=== PATIENT | male | born 1950 | race Caucasian/White ===

== ENCOUNTER → 2017-05-03 | Outpatient (CLI) | payer MEDICARE ==
[~2017-05-03] MED LIST: CATHETER FLUSH 10 ML SYR IV PRN; IOHEXOL 350 MG/ML 100 ML (OMNIPAQUE 350) VIAL IV ONE; NS 100 ML (IVPB) BAG IV ONE
[2017-05-03 10:47] LABS: BLOOD UREA NITROGEN 15 MG/DL (7-18); BUN/CREATININE RATIO 17; CREATININE SERUM 0.89 MG/DL (0.60-1.30); GFR ESTIMATED > 60
--- NOTE | 2017-05-03 13:36 | Diagnostic Imaging Report ---
TECHNIQUE: The IAC and head CT scan were performed with and without intravenous contrast. INDICATION: Conductive hearing loss. CONTRAST: 80 mL of Omnipaque 350 was administered intravenously. FINDINGS: There is no intracranial hemorrhage, edema, or mass effect. The parenchymal phase imaging demonstrates no enhancing mass. The left sigmoid sinus demonstrates poor enhancement and abnormalities in the left mastoid air cells are seen better on the dedicated thin section IAC images which demonstrate bony erosions in the septa and at the margins of the mastoid air cells which include the margins at the interface with the soft tissues in the upper left neck and subtle erosions along the sigmoid plate. There is no obvious intracranial or epidural abscess. However, there is poor enhancement in the left sigmoid sinus. There is suggestion of a pre-existing congenital relatively small sigmoid sinus; however, the lack of enhancement is suggestive of superimposed thrombosis or thrombophlebitis. The opacification in the mastoid air cells extends also anteriorly and around the middle ear cavity which is largely opacified and surrounding the ossicles. There are no significant erosions, however, demonstrated in the ossicles or in the scutum. The post contrast images demonstrate no definitive enhancement in the mastoid air cells. The inner ear structures including the internal auditory canals, cochlea, vestibule, and the semicircular canals appear to be intact. No obvious erosions along the roof of the temporal bone at the floor of the middle cranial fossa. The right mastoid air cells, middle ear cavity, and inner ear structures appear unremarkable. IMPRESSION: 1. Significant osseous erosions associated with opacification of the mastoid air cells and middle ear cavity on the left side are suggestive of coalescent otomastoiditis. The osseous erosions include a subtle erosion along the medial wall posteriorly along the sigmoid plate. 2. There is also poor enhancement in the left sigmoid sinus. 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 The findings were discussed with Dr. Aguirre by Dr. Soni at the time of dictation. The report was also faxed to Dr. Aguirre's office by SAJAN at 1:36 PM. Dictated by: Dictated on workstation # [id number]
== END ==
LOC: RAD 09:26
PROVIDERS: ATTEND Otolaryngology Otolaryngology/Facial Plastic Surgery
DX: H74.8X3 Other specified disorders of middle ear and mastoid, bilateral (principal); G96.9 Disorder of central nervous system, unspecified
CPT/HCPCS: 36415; 70482; 82565; 84520

== ENCOUNTER → 2017-06-02 | Outpatient (CLI) | payer MEDICARE | LOC: CARD 13:51 | PROVIDERS: ATTEND Family Medicine | DX: Z01.810 Encounter for preprocedural cardiovascular examination (principal); H67.2 Otitis media in diseases classified elsewhere, left ear | CPT/HCPCS: 93005 ==

== ENCOUNTER → 2017-06-05 | Outpatient (CLI) | payer MEDICARE ==
[2017-06-05 09:31] LABS: BASOPHILS # (AUTO) 0.1 10^3/uL (0.0-0.1); BASOPHILS % (AUTO) 1 % (0-10); EOSINOPHILS # (AUTO) 0.3 10^3/uL (0.0-0.3); EOSINOPHILS % (AUTO) 5 % (0-10); LYMPHOCYTES # (AUTO) 1.5 X 10^3 (1.0-4.0); LYMPHOCYTES % (AUTO) 28 % (12-44); MEAN CORPUSCULAR HEMOGLOBIN 30 PG (25-34); MEAN CORPUSCULAR HGB CONC 34 G/DL (32-36); MEAN CORPUSCULAR VOLUME 89 FL (80-99); MEAN PLATELET VOLUME 10.5 FL (7.4-10.4); MONOCYTES # (AUTO) 0.8 X 10^3 (0.0-1.0); MONOCYTES % (AUTO) 15 % (0-12); NEUTROPHILS # (AUTO) 2.8 X 10^3 (1.8-7.8); NEUTROPHILS % (AUTO) 51 % (42-75); PLATELET COUNT 239 10^3/uL (130-400); RED CELL DISTRIBUTION WIDTH 14.1 % (10.0-14.5); WHITE BLOOD COUNT 5.5 10^3/uL (4.3-11.0)
[2017-06-05 09:43] LABS: PROTHROMBIN TIME PATIENT 12.5 SEC (12.2-14.7)
[2017-06-05 09:53] LABS: ALANINE AMINOTRANSFERASE 26 U/L (0-55); ALBUMIN 4.2 GM/DL (3.2-4.5); ANION GAP 12 MMOL/L (5-14); ASPARTATE AMINO TRANSFERASE 21 U/L (5-34); BILIRUBIN,TOTAL 1.1 MG/DL (0.1-1.0); BLOOD UREA NITROGEN 13 MG/DL (7-18); BUN/CREATININE RATIO 15; CALCIUM 9.2 MG/DL (8.5-10.1); CARBON DIOXIDE 24 MMOL/L (21-32); CHLORIDE 106 MMOL/L (98-107); CREATININE SERUM 0.85 MG/DL (0.60-1.30); GFR ESTIMATED > 60; GLUCOSE 105 MG/DL (70-105); MAGNESIUM 2.4 MG/DL (1.8-2.4); POTASSIUM 4.2 MMOL/L (3.6-5.0); SODIUM 142 MMOL/L (135-145); TOTAL PROTEIN 7.2 GM/DL (6.4-8.2)
[2017-06-05 09:57] LABS: BAND NEUTROPHILS 1 %; LYMPHOCYTES % (MANUAL) 32 %; NEUTROPHILS % (MANUAL) 51 %
[2017-06-05 09:58] LABS: BASOPHILS % (MANUAL) 0 %; EOSINOPHILS % (MANUAL) 2 %
== END ==
LOC: LAB 08:59
PROVIDERS: ATTEND Family Medicine
DX: Z01.818 Encounter for other preprocedural examination (principal); H67.2 Otitis media in diseases classified elsewhere, left ear
CPT/HCPCS: 36415; 80053; 83735; 85007; 85027; 85610; 85730

== ENCOUNTER 2018-07-04 20:00 | Outpatient (CLI) | payer MEDICARE | END 2018-07-05 06:00 | disposition home or self-care (01) | LOC: SLEEP 20:00 | PROVIDERS: ATTEND Family Medicine | DX: G47.33 Obstructive sleep apnea (adult) (pediatric) (principal) | CPT/HCPCS: 95810 ==

== ENCOUNTER 2021-01-04 05:40 | Outpatient (RCR) | payer MEDICARE ==
[~2021-01-04] VITALS: Ht 185.5 cm; Wt 93.2 kg
[2021-01-05] MEDS ORDERED: OMG1KC PO (12:56)
[2021-01-05] MEDS ORDERED: NIFE-24 PO (12:56)
[2021-01-05] MEDS ORDERED: LEVO75CA5 PO (12:56)
[2021-01-05] MEDS ORDERED: ASPI-1238 PO (12:56)
== END 2021-01-05 15:24 | disposition home or self-care (01) ==
LOC: PREOP 05:40
PROVIDERS: ATTEND Surgery
DX: Z01.818 Encounter for other preprocedural examination (principal)

== ENCOUNTER 2021-01-11 07:55 | Day surgery (SDC) | payer MEDICARE ==
[~2021-01-11] VITALS: Ht 185 cm; Wt 93.2 kg
[~2021-01-11 07:55] MED LIST changes: +ASPI-1238 PO; -CATHETER FLUSH 10 ML SYR IV PRN; -IOHEXOL 350 MG/ML 100 ML (OMNIPAQUE 350) VIAL IV ONE; +LEVO75CA5 PO; +NIFE-24 PO; -NS 100 ML (IVPB) BAG IV ONE; +OMG1KC PO
[2021-01-11] MEDS ORDERED: LACTATED RINGERS 1,000 ML IV ONE (08:01)
[2021-01-11] MEDS ORDERED: LACTATED RINGERS 1,000 ML IV STA (08:02)
[2021-01-11 08:10] VITALS: BP 141/98
[2021-01-11] MEDS ORDERED: PROPOFOL INJECTION 50 ML IV ONE (08:28)
[2021-01-11] MEDS ORDERED: MIDAZOLAM 2 MG/2 ML (VERSED) VIAL ONE (08:28)
[2021-01-11] MEDS ORDERED: DICL75TA2 PO (08:35)
[2021-01-11] MEDS ORDERED: NIAC500T24 PO (08:35)
[2021-01-11] MEDS ORDERED: TMSL.4C PO (08:35)
[2021-01-11] MEDS ORDERED: LUTE20TA PO (08:35)
[2021-01-11] MEDS ORDERED: ZINC50TA51 PO (08:35)
[2021-01-11] MEDS ORDERED: BACL10TA PO (08:35)
--- NOTE | 2021-01-11 08:47 | Progress Note-Pre Operative ---
Pre-Operative Progress Note H&P Reviewed The H&P was reviewed, patient examined and no changes noted. Time Seen by Provider: 08:46 Date H&P Reviewed: Jan 11, 2021 Time H&P Reviewed: 08:46 Pre-Operative Diagnosis: Family hx of Colon CA RAJ ZIMMERMAN DO Jan 11, 2021 08:47
[2021-01-11] MEDS ORDERED: proPOfol 200 MG/20 ML (DIPRIVAN) VIAL IV ONE (09:43)
[2021-01-11 09:55] VITALS: BP 116/71
--- NOTE | 2021-01-11 09:58 | Progress Note-Post Operative ---
Post-Operative Progess Note Surgeon (s)/Lanolin Plant Operator (s) Surgeon RAJ ZIMMERMAN DO Lanolin Plant Operator: LM CasanovaII Pre-Operative Diagnosis Family hx of Colon CA Post-Operative Diagnosis polyps diverticula int hemorrhoids Procedure & Operative Findings Date of Procedure 01/11/21 Procedure Performed/Findings colon with snare colon with hot bx Anesthesia Type IV sedation by STEAM PAN SPONGER Estimated Blood Loss Estimated blood loss (mL): scant Specimens/Packing Specimens Removed cecal polyp - bx desc colon polyp RAJ ZIMMERMAN DO Jan 11, 2021 09:57
--- NOTE | 2021-01-11 09:58 | Endoscopy Discharge Instruct ---
Endo Procedure/Findings Findings 1.: Polyp 2.: Diverticulosis 3.: Internal Hemorrhoids Discharge Instructions - Activity: You might feel a little sleepy until tomorrow. This is due to the medicine you received to relax you. Until tomorrow, you should: NOT drive a car, operate machinery or power tools. NOT drink any alcoholic beverages. NOT make any important decisions or sign importortant papers. Do not return to work until tomorrow, unless otherwise instructed. Resume previous activities tomorrow. Diet: Start by taking liquids. If you tolerate liquids, advance to solid food. 1.: Colonscopy in 3 years Notify Physician - If you experience excessive bleeding, unusual abdominal pain, fever, or chest pain, contact your doctor immediately. RAJ ZIMMERMAN DO Jan 11, 2021 09:58
[2021-01-11 10:00] VITALS: BP 115/74
[2021-01-11 10:04] VITALS: BP 114/77
[2021-01-11 10:05] VITALS: BP 117/80
--- NOTE | 2021-01-11 10:37 | Anesthesia-General Post-Op ---
MAC Patient Condition Mental Status/LOC: Same as Preop Cardiovascular: Satisfactory Nausea/Vomiting: Absent Respiratory: Satisfactory Pain: Controlled Complications: Absent Post Op Complications Complications None Follow Up Care/Instructions Patient Instructions None needed. Anesthesiology Discharge Order Discharge Order Patient is doing well, no complaints, stable vital signs, no apparent adverse anesthesia problems. No complications reported per nursing. MOSIE RIVERA CRNA Jan 11, 2021 10:37
--- NOTE | 2021-01-11 22:05 | OPERATIVE REPORT ---
DATE OF SERVICE: PREOPERATIVE DIAGNOSES: Family history of colon cancer. POSTOPERATIVE DIAGNOSES: Colon polyps, diverticula, internal hemorrhoids. PROCEDURES: 1. Colonoscopy with snare polypectomy. 2. Colonoscopy with hot biopsy. SURGEON: Jose Camejo, DO CLINICAL NURSE SPECIALIST: Guillaume Valadez MS3. ANESTHESIA: IV sedation by the DIRECTOR OF LAND. SPECIMEN: One cecal polyp biopsy and then a descending colon polyp taken in 2 pieces with the snare. BLOOD LOSS: Scant. FLUIDS: Per anesthesia. POSTOPERATIVE CONDITION: Stable. INDICATION FOR PROCEDURE: The patient is a 70-year-old male who has a family history of colon cancer and needs a colonoscopy. FINDINGS: The patient had a small flat polyp in the cecum and then had a very large pedunculated polyp in the descending colon. He also had some diverticula and internal hemorrhoids. PROCEDURE NOTE: After informed consent was obtained, the patient was brought to the endoscopy suite, placed in bed in left lateral decubitus position. He was administered IV sedation by the DIRECTOR OF LAND who then monitored his vitals the entire time, heart rate, blood pressure and pulse ox and the scope was inserted. On the way in, noted some diverticula, took a picture of this, pushed all the way up to about 150 cm, able to get to the cecum and took a picture of the appendiceal orifice. Just next to the appendiceal orifice, soft, flat polyp, I elected to do a hot biopsy of this, got a good bite and then slowly withdrew the scope insufflating to look circumferentially at the hester looking the cecum, up the ascending colon to the hepatic flexure, then down the transverse colon, splenic flexure, into the descending colon. In the descending colon, saw a large pedunculated polyp, elected to do a snare polypectomy, got first one, but there was a little bit of the stalk remaining, so that we used snare second time to get the rest of it. stalk suctioned up into the catch, but the polyp was so big had to pulled the scope completely out, take it off the end of the scope and then pushed the scope back in, continued down the descending colon into the sigmoid and finally into the rectum, retroflexed in rectal vault, saw some minimal internal hemorrhoids, took a picture of this and then removed the scope. The patient tolerated the procedure, recovered in endoscopy suite. Job ID: [id number] DocumentID: [id number] Dictated Date: 01/11/2021 16:07:04 Staff Anesthetist Date: 01/11/2021 22:04:29 Dictated By: JOSE CAMEJO DO
== END 2021-01-11 10:40 | disposition home or self-care (01) ==
LOC: ENDO 07:55
PROVIDERS: ATTEND Surgery
DX: K51.40 Inflammatory polyps of colon without complications (principal); K57.30 Diverticulosis of large intestine without perforation or abscess without bleeding; K64.8 Other hemorrhoids; J45.909 Unspecified asthma, uncomplicated; M19.90 Unspecified osteoarthritis, unspecified site; K42.9 Umbilical hernia without obstruction or gangrene; M62.08 Separation of muscle (nontraumatic), other site; Z79.82 Long term (current) use of aspirin; Z79.899 Other long term (current) drug therapy; Z79.890 Hormone replacement therapy; Z80.9 Family history of malignant neoplasm, unspecified; Z80.0 Family history of malignant neoplasm of digestive organs
CPT/HCPCS: 88305

== ENCOUNTER → 2021-08-11 | Outpatient (CLI) | payer MEDICARE ==
[~2021-08-11] MED LIST changes: +BACL10TA PO; +DICL75TA2 PO; +LUTE20TA PO; +NIAC500T24 PO; +TMSL.4C PO; +ZINC50TA51 PO
--- NOTE | 2021-08-11 12:53 | Diagnostic Imaging Report ---
INDICATION: COUGH CHEST CONGESTION. TECHNIQUE: Two view chest at 10:10 AM CORRELATION STUDY: 02/13/2014 FINDINGS: Mediastinal configuration with tortuous course of the thoracic aorta is unchanged. Heart size is within normal limits. Vasculature within normal limits. The lungs are clear with no consolidating infiltrate. There is no significant pleural effusion or pneumothorax. Mild accentuated thoracic kyphosis with advanced degenerative changes of the thoracic spine. Likely prior rotator cuff surgery. IMPRESSION: 1. Negative for acute abnormality of the chest. Dictated by: Dictated on workstation # [id number]
== END ==
LOC: RAD 09:35
PROVIDERS: ATTEND Family Medicine
DX: R05.9 Cough, unspecified (principal); R09.89 Other specified symptoms and signs involving the circulatory and respiratory systems
CPT/HCPCS: 71046